=== PATIENT | male | born 1970 | race Caucasian/White ===

== ENCOUNTER 2016-05-24 00:33 | Emergency (ER) | payer MEDICARE, MEDICAID ==
[~2016-05-24] VITALS: Ht 188 cm; Wt 81.8 kg
[~2016-05-24 00:33] MED LIST: CELEXA; DOXYCYCLINE 10100 MG PO; GABAPENTIN100 M1 PO; LORTAB 2.5/5001 TAB; ROXICODONE15 MG PO; SUSTIVA; VICODIN 5/5001 UDTAB PO; [UNRECOGNIZED DRUG - OTHER]; [UNRECOGNIZED DRUG - REMARK]
[2016-05-24 00:40] VITALS: TEMP 97
[2016-05-24 02:05] VITALS: BP 138/78; PULSE 78
== END 2016-05-24 02:06 | disposition home or self-care (01) ==
LOC: COL.ER 00:33
DX: S09.90XA Unspecified injury of head, initial encounter (principal); S00.211A Abrasion of right eyelid and periocular area, initial encounter; W10.8XXA Fall (on) (from) other stairs and steps, initial encounter; Y92.89 Other specified places as the place of occurrence of the external cause

== ENCOUNTER 2018-09-12 01:02 | Emergency (ER) | payer MEDICARE, MEDICAID ==
[~2018-09-12] VITALS: Ht 182.9 cm; Wt 65.9 kg
[2018-09-12 01:03] VITALS: TEMP 98.1
[2018-09-12] MEDS ORDERED: NORCO 325 MG-51 TAB PO (05:17)
[2018-09-12] MEDS ORDERED: CLEOCIN HC150 MG/CAP PO (05:17)
[2018-09-12 06:36] VITALS: BP 131/71; PULSE 90
== END 2018-09-12 07:27 | disposition home or self-care (01) ==
LOC: COL.ER 01:02
DX: S06.0X9A Concussion with loss of consciousness of unspecified duration, initial encounter (principal); S02.2XXA Fracture of nasal bones, initial encounter for closed fracture; S62.101A Fracture of unspecified carpal bone, right wrist, initial encounter for closed fracture; Z23 Encounter for immunization; Z21 Asymptomatic human immunodeficiency virus [HIV] infection status; V19.9XXA Pedal cyclist (driver) (passenger) injured in unspecified traffic accident, initial encounter; Y92.410 Unspecified street and highway as the place of occurrence of the external cause
CPT/HCPCS: J2405; J3010; Q4021

== ENCOUNTER 2018-09-21 16:21 | Emergency (ER) | payer MEDICARE, MEDICAID ==
[~2018-09-21 16:21] MED LIST changes: +CLEOCIN HC150 MG/CAP PO; +NORCO 325 MG-51 TAB PO
[2018-09-21 16:39] VITALS: BP 99/60; PULSE 86; TEMP 97.5
== END 2018-09-21 16:40 | disposition home or self-care (01) ==
LOC: COL.ER 16:21
DX: S01.21XD Laceration without foreign body of nose, subsequent encounter (principal); S01.511D Laceration without foreign body of lip, subsequent encounter; S01.111D Laceration without foreign body of right eyelid and periocular area, subsequent encounter; X58.XXXD Exposure to other specified factors, subsequent encounter

== ENCOUNTER 2018-09-24 07:18 | Emergency (ER) | payer MEDICARE ==
[~2018-09-24] VITALS: Ht 182.9 cm; Wt 68.2 kg
[2018-09-24 07:50] VITALS: BP 96/60; PULSE 82; TEMP 98.8
[2018-09-24] MEDS ORDERED: JULUCA 50-25 M1 EACH PO (08:13)
[2018-09-24] MEDS ORDERED: DESYREL DIVIDO150 M1 PO (08:14)
[2018-09-24 08:41] LABS: BASO % 0.1 % (0.0-2.0); EOS # 0.1 (0.0-0.7); EOS % 0.9 % (0-4.0); GRAN # 5.4 (1.4-6.5); GRAN % 67.9 % (42.2-75.2); HEMATOCRIT 40.6 % (42.0-52.0); HEMOGLOBIN 13.9 g/dl (13.5-18.0); LYMPH # 1.9 (1.2-3.4); LYMPH % 23.8 % (20.0-51.0); MEAN CELL VOLUME 90 fl (80.0-100.0); MEAN CORPUSCULAR HEMOGLOBIN 31 pg (27.0-31.0); MEAN CORPUSCULAR HGB CONC 34 g/dl (33.0-37.0); MEAN PLATELET VOLUME 9.1 fl (7.4-10.4); MONO # 0.5 (0.1-0.6); MONO % 6.8 % (1.7-9.3); PLATELET COUNT 227 K/mm3 (130-400); RED BLOOD COUNT 4.53 M/mm3 (4.20-5.60); REDCELL DISTRIBUTION WIDTH-CV 13.2 % (11.5-14.5)
[2018-09-24 08:52] LABS: ALBUMIN 3.7 gm/dL (3.5-5.0); BILIRUBIN,TOTAL 0.3 mg/dL (0.0-1.0); CALCIUM 8.9 mg/dL (8.4-10.2); CREATININE, serum 0.71 (0.66-1.25)
[2018-09-24] MEDS ORDERED: PHENERGAN 25 TA25 MG PO (09:44)
== END 2018-09-24 10:01 | disposition home or self-care (01) ==
LOC: COL.ER 07:18
PROVIDERS: Emergency Medicine
DX: F07.81 Postconcussional syndrome (principal); R51 Headache; Z21 Asymptomatic human immunodeficiency virus [HIV] infection status
CPT/HCPCS: J1885; J2550; J7030

== ENCOUNTER 2019-06-03 00:18 | Emergency (ER) | payer MEDICARE ==
[~2019-06-03] VITALS: Ht 177.8 cm; Wt 65.9 kg
[~2019-06-03 00:18] MED LIST changes: +DESYREL DIVIDO150 M1 PO; +JULUCA 50-25 M1 EACH PO; +PHENERGAN 25 TA25 MG PO
[2019-06-03 00:20] VITALS: BP 113/79; TEMP 98
[2019-06-03 00:59] LABS: BASO % 0.3 % (0.0-2.0); EOS # 0.1 (0.0-0.7); EOS % 0.7 % (0-4.0); GRAN # 7.1 (1.4-6.5); GRAN % 67.5 % (42.2-75.2); HEMATOCRIT 40.7 % (42.0-52.0); HEMOGLOBIN 13.8 g/dl (13.5-18.0); LYMPH # 2.7 (1.2-3.4); LYMPH % 25.6 % (20.0-51.0); MEAN CELL VOLUME 90 fl (80.0-100.0); MEAN CORPUSCULAR HEMOGLOBIN 30 pg (27.0-31.0); MEAN CORPUSCULAR HGB CONC 34 g/dl (33.0-37.0); MEAN PLATELET VOLUME 9.2 fl (7.4-10.4); MONO # 0.6 (0.1-0.6); MONO % 5.6 % (1.7-9.3); PLATELET COUNT 244 K/mm3 (130-400); RED BLOOD COUNT 4.54 M/mm3 (4.20-5.60); REDCELL DISTRIBUTION WIDTH-CV 13.2 % (11.5-14.5)
[2019-06-03 01:06] LABS: BILIRUBIN,TOTAL 0.5 mg/dL (0.0-1.0); CALCIUM 8.7 mg/dL (8.4-10.2); CREATININE, serum 0.57 (0.66-1.25); POTASSIUM 3.8 mmol/L (3.4-5.0); TOTAL PROTEIN 7.3 gm/dL (6.4-8.2)
[2019-06-03] MEDS ORDERED: BACTRIM DS 8001 TAB PO (02:39)
[2019-06-03] MEDS ORDERED: SUDAFED30 MG PO (02:40)
[2019-06-03 03:23] VITALS: PULSE 94
== END 2019-06-03 03:23 | disposition home or self-care (01) ==
LOC: COL.ER 00:18
PROVIDERS: Emergency Medicine
DX: S02.2XXA Fracture of nasal bones, initial encounter for closed fracture (principal); S01.112A Laceration without foreign body of left eyelid and periocular area, initial encounter; H05.232 Hemorrhage of left orbit; F17.210 Nicotine dependence, cigarettes, uncomplicated; Z21 Asymptomatic human immunodeficiency virus [HIV] infection status; Z23 Encounter for immunization; Y04.0XXA Assault by unarmed brawl or fight, initial encounter; Y92.009 Unspecified place in unspecified non-institutional (private) residence as the place of occurrence of the external cause
CPT/HCPCS: J3010; J7030